=== PATIENT | female | born 1945 | race Caucasian/White ===

== ENCOUNTER 2020-10-26 20:57 | Emergency (ER) | payer MEDICARE, BC ==
[2020-10-26 22:33] LABS: #Basophils 0.1 10x3/uL (0.0-0.2); #Eosinphils 0.2 10x3/uL (0.0-0.5); #Monocytes 0.8 10x3/uL (0.0-1.1); #Neutrophils 6.8 10x3/uL (1.5-8.4); %Basophils 0.6 % (0.0-2.0); %Neutrophils 71.8 % (40.0-75.0); Hemoglobin 10.8 g/dL (12.0-15.5); Mean Corpuscular HGB CONC 32.3 g/dL (32.0-36.0); Mean Corpuscular Hemoglobin 33.1 pg (27.0-33.0); Mean Corpuscular Volume 102.5 fl (81.6-98.3); Mean Platelet Volume 9.3 fl (7.4-10.4); Platelet Count 258 10x3/uL (150-450); RBC Distribution Width 16.5 % (11.5-14.5); Red Blood Cell (RBC) Count 3.26 10x6/uL (3.90-5.03); White Blood Cell (WBC) Count 9.5 10x3/uL (3.5-10.5)
[2020-10-26 22:44] LABS: Anion Gap 12 mmol/L (10-20); BUN (Urea Nitrogen) 23 mg/dL (9.8-20.1); Calc. Creatinine Clearance 0 mL/min (70-130); Calcium 9.1 mg/dL (7.8-10.44); Carbon Dioxide 24 mmol/L (23-31); Chloride 102 mmol/L (98-107); Glucose 138 mg/dL (83-110); Potassium 4.2 mmol/L (3.5-5.1); Sodium 134 mmol/L (136-145)
== END 2020-10-26 22:58 | disposition home or self-care (01) ==
LOC: CSHERS 20:57
DX: I10 Essential (primary) hypertension (principal); D64.9 Anemia, unspecified; K21.9 Gastro-esophageal reflux disease without esophagitis; Z79.82 Long term (current) use of aspirin; Z79.899 Other long term (current) drug therapy
CPT/HCPCS: 36415; 70450; 80048; 85025; 85652

== ENCOUNTER 2021-07-12 15:01 | Outpatient (CLI) | payer MEDICARE, BC | END 2021-07-12 15:02 | disposition home or self-care (01) | LOC: CSHMRI 15:01 | PROVIDERS: ATTEND Anesthesiology | DX: M54.16 Radiculopathy, lumbar region (principal); M48.061 Spinal stenosis, lumbar region without neurogenic claudication | CPT/HCPCS: 72148 ==

== ENCOUNTER 2022-04-22 13:28 | Outpatient (CLI) | payer MEDICARE, BC | END 2022-04-22 13:29 | disposition home or self-care (01) | LOC: CSHMAMMO 13:28 | PROVIDERS: ATTEND Internal Medicine | DX: Z12.31 Encounter for screening mammogram for malignant neoplasm of breast (principal) | CPT/HCPCS: 77063; 77067 ==

== ENCOUNTER 2023-04-25 13:46 | Outpatient (CLI) | payer MEDICARE, BC | END 2023-04-25 13:47 | disposition home or self-care (01) | LOC: CSHMAMMO 13:46 | PROVIDERS: ATTEND Internal Medicine | DX: Z12.31 Encounter for screening mammogram for malignant neoplasm of breast (principal) | CPT/HCPCS: 77063; 77067 ==

== ENCOUNTER 2024-08-19 13:00 | Outpatient (CLI) | payer MEDICARE ==
[2024-08-19 18:02] LABS: Anion Gap 17 mmol/L (10-20); BUN (Urea Nitrogen) 30 mg/dL (9.8-20.1); Calc. Creatinine Clearance 0 mL/min (70-130); Calcium 9.1 mg/dL (7.8-10.44); Carbon Dioxide 22 mmol/L (23-31); Chloride 103 mmol/L (98-107); Estimated GFR 40; Glucose 105 mg/dL (83-110); Potassium 4.8 mmol/L (3.5-5.1); Sodium 137 mmol/L (136-145)
[2024-08-19 18:21] LABS: #Basophils 0.07 10x3/uL (0.0-0.2); #Monocytes 0.84 10x3/uL (0.0-1.1); #Neutrophils 6.75 10x3/uL (1.5-8.4); %Basophils 0.8 % (0.0-2.0); %Eosinophils 2.2 % (0.0-6.0); %Monocytes 9.4 % (0.0-10.0); %Neutrophils 75.6 % (40.0-75.0); Hematocrit 32.1 % (34.9-44.5); Hemoglobin 9.9 g/dL (12.0-15.5); Mean Corpuscular HGB CONC 30.8 g/dL (32.0-36.0); Mean Corpuscular Hemoglobin 34.1 pg (27.0-33.0); Mean Corpuscular Volume 110.7 fL (81.6-98.3); Platelet Count 265 10x3/uL (150-450); RBC Distribution Width 17.2 % (11.5-14.5); White Blood Cell (WBC) Count 8.93 10x3/uL (3.5-10.5)
== END 2024-08-19 13:01 | disposition home or self-care (01) ==
LOC: CSHLAB 13:00
PROVIDERS: ATTEND Surgery
DX: Z01.818 Encounter for other preprocedural examination (principal); K40.90 Unilateral inguinal hernia, without obstruction or gangrene, not specified as recurrent
CPT/HCPCS: 80048; 85025; 93005; 93010

== ENCOUNTER 2024-09-02 05:42 | Day surgery (SDC) | payer MEDICARE ==
[2024-08-19 13:37] VITALS: BMI 26.4
[2024-09-02] MEDS ORDERED: Bupivacaine/Epinephrine 0.25% 30 ML VIAL ONE (06:56)
[2024-09-02] MEDS ORDERED: CEFAZOLIN 2 GM VIAL ONE (06:56)
[2024-09-02] MEDS ORDERED: Rocuronium Bromide 10 MG/ML (10ML VIAL) ONE (07:07)
[2024-09-02] MEDS ORDERED: PROPOFOL 20 ML ONE (07:07)
[2024-09-02] MEDS ORDERED: Fentanyl 250 MCG/5 ML VIAL ONE (07:08)
[2024-09-02] MEDS ORDERED: Midazolam HCl 2 mg/2 ml Vial ONE (07:09)
[2024-09-02] MEDS ORDERED: Propofol 1,000 MG/100 ML VIAL IV ONE (07:11)
[2024-09-02] MEDS ORDERED: Sevoflurane 250 ML INH ANEST BOTTLE ONE (07:11)
[2024-09-02] MEDS ORDERED: KETAMINE 100 MG/ML (5ML VIAL) ONE (07:11)
[2024-09-02] MEDS ORDERED: ePHEDrine Sulfate 50 MG/10 ML VIAL ONE (07:15)
[2024-09-02] MEDS ORDERED: Ondansetron PF 4 MG/2 ML Vial ONE ×2 (07:21→09:13)
[2024-09-02] MEDS ORDERED: Dexamethasone 4 mg/ml Vial ONE (07:21)
[2024-09-02] MEDS ORDERED: Glycopyrrolate 0.2 MG/ML 5 ML SYRINGE ONE (07:39)
[2024-09-02] MEDS ORDERED: PHENYLEPHRINE-NS 100 MCG/ML 10 ML SYRINGE ONE (08:04)
[2024-09-02] MEDS ORDERED: Lidocaine 2% PF 5 ML VIAL ONE (08:39)
[2024-09-02] MEDS ORDERED: Dexmedetomidine 200 MCG/2 ML VIAL ONE (08:41)
[2024-09-02] MEDS ORDERED: Dexamethasone 20 MG/5 ML VIAL ONE (09:02)
[2024-09-02] MEDS ORDERED: Acetaminophen 500 MG TAB ONE (09:11)
[2024-09-02] MEDS ORDERED: Ketorolac Tromethamine 30 MG (1 mL) VIAL ONE (09:14)
== END 2024-09-02 10:12 | disposition home or self-care (01) ==
LOC: CSHSDC 05:42
PROVIDERS: ATTEND Surgery
PROC: 0YU60JZ Supplement Left Inguinal Region with Synthetic Substitute, Open Approach (ICD-10-PCS; principal; 2024-09-02)
DX: K40.90 Unilateral inguinal hernia, without obstruction or gangrene, not specified as recurrent (principal); I10 Essential (primary) hypertension; K21.9 Gastro-esophageal reflux disease without esophagitis; D64.9 Anemia, unspecified; Z86.73 Personal history of transient ischemic attack (TIA), and cerebral infarction without residual deficits; Z95.0 Presence of cardiac pacemaker; Z87.891 Personal history of nicotine dependence; Z90.49 Acquired absence of other specified parts of digestive tract; Z90.710 Acquired absence of both cervix and uterus; Z79.82 Long term (current) use of aspirin; Z79.899 Other long term (current) drug therapy
CPT/HCPCS: 49505; J1100; J2405; J2704 ×2; J3010; A6258; C1781; J1885; J2250